=== PATIENT | male | born 1955 ===

== ENCOUNTER 2019-08-01 05:46 | Inpatient (IN) | payer BC ==
[~2019-08-01] VITALS: Ht 188 cm; Wt 106.7 kg
[2019-08-01] MEDS ORDERED: CHLORHEXIDINE 15 ML UDC ONE (06:52)
[2019-08-01] MEDS: LACTATED RINGERS 1,000 ML IV SCH ×2 (06:53→07:00)
[2019-08-01] MEDS ORDERED: SPIR25TA5 PO (06:59)
[2019-08-01] MEDS ORDERED: LISI-167 PO (06:59)
[2019-08-01] MEDS ORDERED: SEMA1PEN SQ (06:59)
[2019-08-01] MEDS ORDERED: TIMO5DRO33 TP (06:59)
[2019-08-01] MEDS ORDERED: ATOR40TA78 PO (06:59)
[2019-08-01] MEDS ORDERED: VITAMIN D PO (06:59)
[2019-08-01] MEDS ORDERED: EMPA25TA PO (06:59)
[2019-08-01] MEDS ORDERED: METF10007 PO (06:59)
[2019-08-01] MEDS ORDERED: BRIN8DRO TP (06:59)
[2019-08-01] MEDS ORDERED: TRAV5DRO TP (06:59)
[2019-08-01] MEDS ORDERED: MELO15TA24 PO (06:59)
[2019-08-01] MEDS ORDERED: INSU300I SQ (06:59)
[2019-08-01] MEDS ORDERED: CHLORHEXIDINE 15 ML UDC MM ONE (07:00)
[2019-08-01 07:02] VITALS: BP 121/78
[2019-08-01] MEDS ORDERED: TRIAMCINOLONE ACETONIDE 40 MG/ML, 1ML ONE (07:07)
[2019-08-01] MEDS ORDERED: BUPIVACAINE/PF-EPI 0.25% 1:200K ONE (07:07)
[2019-08-01] MEDS ORDERED: LIDOCAINE/PF 0.5% ,50ML ONE (07:07)
[2019-08-01] MEDS ORDERED: VANCOMYCIN 1,000 MG ONE (07:08)
[2019-08-01] MEDS ORDERED: EPINEPHRINE 1 MG/ML, 1ML ONE (07:08)
[2019-08-01] MEDS ORDERED: FENTANYL PF 100 MCG/2ML ONE ×2 (07:22→11:01)
[2019-08-01] MEDS ORDERED: MIDAZOLAM 1 MG/ML, 2ML ONE (07:23)
[2019-08-01] MEDS ORDERED: PROPOFOL 100 ML ONE (07:23)
[2019-08-01] MEDS ORDERED: PHENYLEPHRINE 10 MG/ML ONE (07:43)
[2019-08-01] MEDS ORDERED: GLYCOPYRROLATE 0.2MG/1ML, 5ML ONE (08:26)
[2019-08-01] MEDS ORDERED: PROPOFOL 10 MG/ML, 20ML ONE (08:26)
[2019-08-01] MEDS ORDERED: ONDANSETRON 2MG/ML, 2ML ONE (08:26)
[2019-08-01] MEDS ORDERED: ROCURONIUM 10MG/ML,5ML ONE (08:26)
[2019-08-01] MEDS ORDERED: DEXAMETHASONE 4 MG/ML, 1ML ONE (08:26)
[2019-08-01] MEDS ORDERED: CEFAZOLIN 1,000 MG ONE (08:26)
[2019-08-01] MEDS ORDERED: NEOSTIGMINE 1 MG/ML, 10ML ONE (08:26)
[2019-08-01] MEDS ORDERED: SUCCINYLCHOLINE 20 MG/ML, 10ML ONE (08:26)
[2019-08-01] MEDS ORDERED: METHOCARBAMOL 1,000 MG in DEXTROSE 5% 100 ML IV PRN (09:00)
[2019-08-01] MEDS ORDERED: LIDOCAINE-MPF 2% ,5ML ONE (09:00)
[2019-08-01] MEDS ORDERED: ACETAMINOPHEN 325 MG TABLET PO PRN (09:00)
[2019-08-01] MEDS ORDERED: PROMETHAZINE 25 MG SUPP PR PRN (09:00)
[2019-08-01] MEDS ORDERED: hydrALAzine 20 MG/ML, 1ML IV PRN (09:00)
[2019-08-01] MEDS ORDERED: ONDANSETRON 2MG/ML, 2ML IVPush PRN (09:00)
[2019-08-01] MEDS ORDERED: LABETALOL 5MG/ML, 20ML IV PRN (09:00)
[2019-08-01] MEDS ORDERED: LORazepam 2 MG/ML, 1ML IVPush PRN (09:00)
[2019-08-01] MEDS ORDERED: OXYcodone 5 MG/5 ML ORAL.SOL UDC PO PRN (09:00)
[2019-08-01] MEDS ORDERED: PROMETHAZINE 25 MG/ML, 1ML IVPush PRN (09:00)
[2019-08-01] MEDS ORDERED: DIAZEPAM 5 MG/ML, 2ML ONE (10:48)
[2019-08-01] MEDS: DIAZEPAM 5 MG/ML, 2ML IVPush PRN ×2 (10:56→11:10)
[2019-08-01] MEDS ORDERED: HYDROmorphone 1 MG/ML, 1ML INJ ONE (11:01)
[2019-08-01] MEDS: FENTANYL PF 100 MCG/2ML IV PRN ×2 (11:10→11:24)
[2019-08-01] MEDS: HYDROmorphone 1 MG/ML, 1ML INJ IVPush PRN ×2 (11:10→11:45)
[2019-08-01 12:30] VITALS: BP 147/90
[2019-08-01] MEDS ORDERED: PROMETHAZINE 25 MG/ML, 1ML IM PRN (13:30)
[2019-08-01] MEDS ORDERED: MAGNESIUM HYDROXIDE 8%, 30ML UDC PO PRN (13:30)
[2019-08-01] MEDS ORDERED: BISACODYL 10 MG SUPP PR PRN (13:30)
[2019-08-01] MEDS ORDERED: ONDANSETRON 2MG/ML, 2ML IV PRN (13:30)
[2019-08-01] MEDS ORDERED: HYDROcodone/APAP 5/325 TABLET PO PRN (13:30)
[2019-08-01] MEDS: CEFAZOLIN PMX 1GM/50ML 50 ML IVPB SCH (15:40)
[2019-08-01] MEDS: D5%-0.9% NACL+KCL 20MEQ 1,000 ML IV SCH (15:40)
[2019-08-01] MEDS: morphine SULFATE 10 MG/ML, 1ML IV PRN ×4 (15:48→22:06)
[2019-08-01] MEDS: DEXAMETHASONE 4 MG/ML, 1ML IVPush SCH ×2 (16:57→23:37)
[2019-08-01] MEDS: DIAZEPAM 5 MG/ML, 2ML IV PRN ×2 (16:57→23:34)
[2019-08-01] MEDS: METHOCARBAMOL 750 MG in DEXTROSE 5% 100 ML IV SCH (18:51)
[2019-08-01 18:54] VITALS: BP 145/92
[2019-08-01] MEDS: INSULIN LISPRO 100 UNITS/ML, PEN SQ-INSULIN SCH (21:00)
[2019-08-01] MEDS ORDERED: INSULIN GLARGINE 100 UNITS/ML, PEN SQ-INSULIN SCH (21:00)
[2019-08-01] MEDS ORDERED: ATORVASTATIN 40 MG TABLET PO SCH (21:00)
[2019-08-01] MEDS: TIMOLOL OPHTH 0.25%, 5ML EACHEYE SCH (21:00)
[2019-08-01] MEDS: SENNA/DOCUSATE TABLET PO SCH (21:00)
[2019-08-01] MEDS ORDERED: TRAVOPROST OPHTH 0.004%, 2.5ML OP SCH (21:00)
[2019-08-02 00:34] VITALS: BP 116/70
[2019-08-02] MEDS: CEFAZOLIN PMX 1GM/50ML 50 ML IVPB SCH (00:45)
[2019-08-02] MEDS: METHOCARBAMOL 750 MG in DEXTROSE 5% 100 ML IV SCH ×2 (03:10→11:18)
[2019-08-02 03:33] VITALS: BP 127/80
[2019-08-02] MEDS: D5%-0.9% NACL+KCL 20MEQ 1,000 ML IV SCH ×2 (04:30→14:30)
[2019-08-02 04:54] LABS: BASOPHILS % (AUTO) 0 % (0-1); EOSINOPHILS % (AUTO) 0 % (1-7); LYMPHOCYTES # (AUTO) 0.81 x10^3/uL (1-3.4); LYMPHOCYTES % (AUTO) 10 % (22-44); MD NO; MEAN CORPUSCULAR HEMOGLOBIN 28.9 pg (27.5-34.5); MEAN CORPUSCULAR HGB CONC 32.8 g/dL (33.2-36.2); MEAN PLATELET VOLUME 7.8 fL (7.4-10.4); MONOCYTES # (AUTO) 0.54 x10^3/uL (0.2-0.8); MONOCYTES % (AUTO) 6 % (2-9); NEUTROPHILS # (AUTO) 7.15 x10^3/uL (1.8-6.8); NEUTROPHILS % (AUTO) 84 % (42-75); PLATELET COUNT 192 x10^3/uL (130-400); RED BLOOD COUNT 5.02 x10^6/uL (4.38-5.82); RED CELL DISTRIBUTION WIDTH 13.9 % (9.4-14.8)
[2019-08-02 05:04] LABS: ANION GAP 8 mmol/L (5-15); CALCIUM 8.7 mg/dL (8.5-10.1); CHLORIDE 106 mmol/L (98-107)
[2019-08-02] MEDS: DEXAMETHASONE 4 MG/ML, 1ML IVPush SCH ×2 (05:25→11:19)
[2019-08-02 07:59] VITALS: BP 125/81
[2019-08-02] MEDS ORDERED: metFORMIN XR 500 MG TAB.ER.24H PO SCH (08:00)
[2019-08-02] MEDS: morphine SULFATE 10 MG/ML, 1ML IV PRN (08:39)
[2019-08-02] MEDS: TIMOLOL OPHTH 0.25%, 5ML EACHEYE SCH (08:45)
[2019-08-02] MEDS: SENNA/DOCUSATE TABLET PO SCH (08:45)
[2019-08-02] MEDS: INSULIN LISPRO 100 UNITS/ML, PEN SQ-INSULIN SCH ×3 (08:46→16:41)
[2019-08-02] MEDS ORDERED: EMPAGLIFLOZIN 25 MG HOMEMEDPO SCH (09:00)
[2019-08-02] MEDS ORDERED: SPIRONOLACTONE 25 MG TABLET PO SCH (09:00)
[2019-08-02] MEDS ORDERED: LISINOPRIL 10 MG TABLET PO SCH (09:00)
[2019-08-02] MEDS: HYDROcodone/APAP 10/325 MG TABLET PO PRN ×2 (12:16→16:39)
[2019-08-02] MEDS ORDERED: KETOROLAC 30 MG/1 ML IVPush PRN (13:30)
[2019-08-02] MEDS ORDERED: KETOROLAC 30 MG/1 ML IVPush SCH (13:30)
[2019-08-02 14:10] VITALS: BP 120/80
[2019-08-02] MEDS ORDERED: HYDR-3246 PO (14:22)
[2019-08-03] MEDS ORDERED: METHOCARBAMOL 750 MG TABLET PO SCH (18:30)
[2019-08-04] MEDS ORDERED: [UNRECOGNIZED DRUG - OTHER] SQ SCH (09:00)
[2019-08-04] MEDS ORDERED: SEMAGLUTIDE SQ SCH (09:00)
== END 2019-08-02 17:00 | disposition home or self-care (01) | DRG 473 ==
LOC: ORIP 05:46 → 4NE 12:38 → DCLOUNGE 08-02 16:51
PROVIDERS: ADMIT Orthopaedic Surgery Orthopaedic Surgery of the Spine; ATTEND Orthopaedic Surgery Orthopaedic Surgery of the Spine
PROC: 0RB30ZZ Excision of Cervical Vertebral Disc, Open Approach (ICD-10-PCS; 2019-08-01)
PROC: 4A1004G Monitoring of Central Nervous Electrical Activity, Intraoperative, Open Approach (ICD-10-PCS; 2019-08-01)
PROC: 0RH108Z Insertion of Spacer into Cervical Vertebral Joint, Open Approach (ICD-10-PCS; 2019-08-01)
PROC: 0RG20K0 Fusion of 2 or more Cervical Vertebral Joints with Nonautologous Tissue Substitute, Anterior Approach, Anterior Column, Open Approach (ICD-10-PCS; principal; 2019-08-01 07:30)
DX: M43.12 Spondylolisthesis, cervical region (principal); M25.78 Osteophyte, vertebrae; I10 Essential (primary) hypertension; M50.30 Other cervical disc degeneration, unspecified cervical region; G89.29 Other chronic pain; I25.10 Atherosclerotic heart disease of native coronary artery without angina pectoris; I25.2 Old myocardial infarction
CPT/HCPCS: 36415; 72040; 74220; J3490; 80048; 82962; 85025; 95938; 95941; C1713; G0378; J0171; J0690; J1100; J1170; J2001; J2250; J2405; J2704; J2710; J3010; J3301; J3360; J3370; C1762; C1889; J0330; J1815; J2270; J2370; J2800; J3480; J7120

== ENCOUNTER 2019-08-06 14:57 | Inpatient (IN) | payer BC ==
[~2019-08-06] VITALS: Ht 188 cm; Wt 99.0 kg
[~2019-08-06 14:57] MED LIST: ATOR40TA78 PO; BRIN8DRO TP; EMPA25TA PO; HYDR-3246 PO; INSU300I SQ; LISI-167 PO; MELO15TA24 PO; METF10007 PO; SEMA1PEN SQ; SPIR25TA5 PO; TIMO5DRO33 TP; TRAV5DRO TP; VITAMIN D PO
[2019-08-06] MEDS ORDERED: SODIUM CHLORIDE FLUSH 10ML SYR IVF ONE (15:30)
[2019-08-06 15:36] LABS: ALBUMIN 3.4 g/dL (3.4-5.0); ANION GAP 13 mmol/L (5-15); BASOPHILS # (AUTO) 0.01 x10^3/uL (0-0.1); BASOPHILS % (AUTO) 0 % (0-1); CALCIUM 9.4 mg/dL (8.5-10.1); CHLORIDE 100 mmol/L (98-107); CREATININE 0.85 mg/dL (0.7-1.3); EOSINOPHILS # (AUTO) 0.11 x10^3/uL (0-0.4); EOSINOPHILS % (AUTO) 2 % (1-7); LYMPHOCYTES # (AUTO) 0.86 x10^3/uL (1-3.4); LYMPHOCYTES % (AUTO) 17 % (22-44); MD NO; MEAN CORPUSCULAR HEMOGLOBIN 29.2 pg (27.5-34.5); MEAN CORPUSCULAR HGB CONC 33.6 g/dL (33.2-36.2); MEAN PLATELET VOLUME 7.2 fL (7.4-10.4); MONOCYTES # (AUTO) 0.45 x10^3/uL (0.2-0.8); MONOCYTES % (AUTO) 9 % (2-9); NEUTROPHILS # (AUTO) 3.67 x10^3/uL (1.8-6.8); NEUTROPHILS % (AUTO) 72 % (42-75); PLATELET COUNT 223 x10^3/uL (130-400); RED CELL DISTRIBUTION WIDTH 13.6 % (9.4-14.8)
[2019-08-06] MEDS ORDERED: VITAMIN B COMPLEX (15:41)
--- NOTE | 2019-08-06 15:50 | NUR ---
REPORT FROM CLAUDIO BELL.
[2019-08-06] MEDS ORDERED: ONDANSETRON 2MG/ML, 2ML IVPush ONE (16:00)
[2019-08-06] MEDS ORDERED: MORPHINE SULFATE 4 MG/ML, 1ML ONE (16:00)
[2019-08-06] MEDS: MORPHINE SULFATE 4 MG/ML, 1ML IVPush PRN ×2 (16:02→19:15)
--- NOTE | 2019-08-06 16:08 | NUR ---
PT UP TO RESTROOM, STRONG INDEPENDENT GAIT. URINE SAMPLE PROVIDED AND SENT. PT MEDICATED PER MAR FOR PAIN. DENIES ANY FURTHER NEEDS OR CONCERNS AT THIS TIME. CALL LIGHT IN REACH.
--- NOTE | 2019-08-06 16:19 | NUR ---
ATTEMPTED TO CALL SENDING HOSPITAL FOR CT IMAGE TRANSFER, BUT WAS UNABLE TO GET THROUGH TO RADIOLOGY AT THIS TIME.
[2019-08-06] MEDS ORDERED: ONDANSETRON 2MG/ML, 2ML IVPush PRN (16:30)
[2019-08-06] MEDS ORDERED: LABETALOL 5MG/ML, 20ML IVPush PRN (16:30)
[2019-08-06] MEDS ORDERED: ENALAPRILAT 1.25 MG/ML, 2ML IVPush PRN (16:30)
[2019-08-06] MEDS ORDERED: POLYETHYLENE GLYCOL 17 GM PACKET PO PRN (16:30)
[2019-08-06] MEDS ORDERED: BISACODYL 10 MG SUPP PR PRN (16:30)
[2019-08-06] MEDS: PIPERACILLIN/TAZO/PMX 3.375GM 50 ML IV SCH ×2 (16:30→22:37)
[2019-08-06] MEDS: HEPARIN 5,000 UNITS/ML, 1ML SQ SCH (16:30)
[2019-08-06] MEDS ORDERED: ACETAMINOPHEN 325 MG TABLET PO PRN (16:30)
[2019-08-06] MEDS ORDERED: VANCOMYCIN PER PHARMACY MC PRN (16:30)
[2019-08-06] MEDS ORDERED: OMNIPAQUE 350 MG/ML, 150 ML BOTTLE ONE (16:43)
--- NOTE | 2019-08-06 17:08 | NUR ---
QASIM OF PATIENT - [phone]
--- NOTE | 2019-08-06 17:12 | NUR ---
PT FAMILY UPDATED ON VISITATION RESTRICTIONS. VERBALIZE UNDERSTANDING. PT RESTING IN BED, DENIES ANY NEEDS OR CONCERNS AT THIS TIME. CALL LIGHT IN REACH.
--- NOTE | 2019-08-06 18:01 | NUR ---
REPORT CALLED TO CLAUDIO EMERSON.
[2019-08-06] MEDS ORDERED: PIPERACILLIN/TAZO/PMX 3.375GM 50 ML ONE (18:02)
[2019-08-06] MEDS ORDERED: PHARMACOKINETIC CONSULTATION MC ONE (19:00)
[2019-08-06] MEDS ORDERED: VANCOMYCIN 2,400 MG in SODIUM CHLORIDE 0.9% 500 ML IV ONE (19:00)
[2019-08-06] MEDS ORDERED: PHARMACOKINETIC MONITORING MC PRN (19:30)
[2019-08-06] MEDS: D5%-0.9% NACL 1,000 ML IV SCH (19:46)
[2019-08-06] MEDS ORDERED: INSULIN LISPRO 100 UNITS/ML, PEN SQ-INSULIN SCH (21:00)
[2019-08-07] MEDS: HEPARIN 5,000 UNITS/ML, 1ML SQ SCH ×3 (00:30→15:03)
[2019-08-07] MEDS: MORPHINE SULFATE 4 MG/ML, 1ML IVPush PRN ×5 (02:08→22:52)
[2019-08-07] MEDS: INSULIN LISPRO 100 UNITS/ML, PEN SQ-INSULIN SCH ×4 (02:43→21:00)
[2019-08-07 04:08] VITALS: BP 143/93
[2019-08-07 04:22] LABS: ALANINE AMINOTRANSFERASE 22 U/L (12-78); ALBUMIN 2.9 g/dL (3.4-5.0); ANION GAP 10 mmol/L (5-15); CALCIUM 8.6 mg/dL (8.5-10.1); CHLORIDE 104 mmol/L (98-107); CREATININE 0.79 mg/dL (0.7-1.3)
[2019-08-07 04:25] LABS: ALKALINE PHOSPHATASE 91 U/L (45-117); TOTAL PROTEIN 6.8 g/dL (6.4-8.2)
[2019-08-07] MEDS: PIPERACILLIN/TAZO/PMX 3.375GM 50 ML IV SCH (04:28)
[2019-08-07] MEDS: D5%-0.9% NACL 1,000 ML IV SCH ×2 (09:00→18:18)
[2019-08-07] MEDS: SENNA/DOCUSATE TABLET PO SCH (09:00)
[2019-08-07] MEDS ORDERED: VANCOMYCIN 1,900 MG in SODIUM CHLORIDE 0.9% 250 ML IV SCH (14:00)
[2019-08-08] MEDS: HEPARIN 5,000 UNITS/ML, 1ML SQ SCH ×2 (00:30→07:50)
[2019-08-08] MEDS: INSULIN LISPRO 100 UNITS/ML, PEN SQ-INSULIN SCH ×2 (03:00→07:51)
[2019-08-08] MEDS: MORPHINE SULFATE 4 MG/ML, 1ML IVPush PRN ×3 (04:01→12:24)
[2019-08-08] MEDS: D5%-0.9% NACL 1,000 ML IV SCH (04:09)
[2019-08-08 04:10] VITALS: BP 155/106
[2019-08-08] MEDS ORDERED: FENTANYL PF 250 MCG/5ML ONE (06:54)
[2019-08-08] MEDS ORDERED: PROPOFOL 50 ML ONE (06:54)
[2019-08-08] MEDS: SENNA/DOCUSATE TABLET PO SCH (07:51)
[2019-08-08] MEDS ORDERED: TIMOLOL OPTH MC SCH (08:00)
[2019-08-08] MEDS ORDERED: [UNRECOGNIZED DRUG - OTHER] MC SCH (08:30)
[2019-08-08] MEDS ORDERED: BRIMONIDINE MC SCH (08:30)
[2019-08-08] MEDS ORDERED: BRINZOLAMIDE MC SCH (08:30)
[2019-08-08] MEDS ORDERED: LISINOPRIL 10 MG TABLET PO SCH (09:00)
[2019-08-08] MEDS ORDERED: TEMPLATE NON-FORMULARY MED. (Brinzolamide/Brimonid Tart (Simbrinza 1%-0.2% Eye Drops) 1 DR TP SCH (09:00)
[2019-08-08] MEDS ORDERED: SPIRONOLACTONE 25 MG TABLET PO SCH (09:00)
[2019-08-08] MEDS ORDERED: TRAVOPROST OPHTH 0.004%, 2.5ML EACHEYE SCH (09:00)
[2019-08-08] MEDS ORDERED: TEMPLATE NON-FORMULARY MED. (Timolol Maleate 1 DROP) TP SCH (09:00)
[2019-08-08] MEDS ORDERED: ATORVASTATIN 40 MG TABLET PO SCH (21:00)
== END 2019-08-08 13:39 | disposition home or self-care (01) | DRG 392 ==
LOC: ED 15:20 → EDIP 16:06 → CCU 18:53 → DCLOUNGE 08-08 13:30
PROVIDERS: ADMIT Internal Medicine; ATTEND Internal Medicine
PROC: BD11ZZZ Fluoroscopy of Esophagus (ICD-10-PCS; principal; 2019-08-06)
DX: R13.10 Dysphagia, unspecified (principal); E87.1 Hypo-osmolality and hyponatremia; E11.9 Type 2 diabetes mellitus without complications; E55.9 Vitamin D deficiency, unspecified; E78.5 Hyperlipidemia, unspecified; H40.9 Unspecified glaucoma; I10 Essential (primary) hypertension; J43.9 Emphysema, unspecified; Z83.3 Family history of diabetes mellitus; Z98.1 Arthrodesis status
CPT/HCPCS: 36415; 74220; 84145; 99285; J7042; 80048; 80053; 82040; 82962; 83605; 85025; 87081; 87635; 93005; G0378; J1644; J2543; J2704; J3010; J3370; Q9967; J2270; J7040